=== PATIENT | male | born 1940 | race Caucasian/White ===

== ENCOUNTER 2018-07-24 20:48 | Emergency (ER) | payer MEDICARE, OTHER ==
[2018-07-24 21:31] LABS: INR-International Normal Ratio 2.9; PTT 40.8 SEC (22.9-36.1); Prothrombin Time 30.1 SEC (12.0-14.7)
--- NOTE | 2018-07-24 21:38 | RAD ---
EXAM: Right Rib series with chest x-ray HISTORY: Fall from tractor with chest and right rib pain COMPARISON: None FINDINGS: Single view of the chest shows a normal sized cardiomediastinal silhouette. The patient is status post sternotomy. There is no evidence of consolidation, mass, or pleural effusion. Multiple views of the right ribs shows no evidence of displaced rib fracture. No underlying pleural t hickening or pneumothorax are seen. IMPRESSION: 1. No evidence of displaced rib fracture. 2. No evidence of acute cardiopulmonary disease.
[2018-07-24 21:44] LABS: #Basophils 0.1 thou/uL (0.0-0.2); #Eosinphils 0.2 thou/uL (0.0-0.7); #Lymphocytes 1.1 thou/uL (1.20-3.40); #Monocytes 0.4 thou/uL (0.11-0.59); #Neutrophils 3.3 thou/uL (1.40-6.50); %Basophils 1.2 % (0.0-1.0); %Eosinophils 4.1 % (0.0-10.0); %Lymphocytes 21.3 % (21.0-51.0); %Monocytes 8.2 % (0.0-10.0); %Neutrophils 65.2 % (42.0-75.0); Hemoglobin 13.1 g/dL (14.0-18.0); Mean Corpuscular HGB CONC 32.8 g/dL (32.0-36.0); Mean Corpuscular Hemoglobin 28.9 pg (27.0-31.0); Mean Corpuscular Volume 88.2 fL (78.0-98.0); Mean Platelet Volume 10.3 fL (7.4-10.4); Platelet Count 208 thou/uL (130-400); RBC Distribution Width 12.2 % (11.5-14.5); Red Blood Cell (RBC) Count 4.54 mill/uL (4.70-6.10)
--- NOTE | 2018-07-24 21:44 | RAD ---
EXAM: 3 views of the right shoulder HISTORY: Shoulder pain after falling off a tractor COMPARISON: None FINDINGS: There is no evidence of acute fracture or dislocation. No degenerative changes are present. No soft tissue swelling is seen. The visualized thorax is unremarkable. IMPRESSION: No evidence of acute osseous abnormality.
--- NOTE | 2018-07-24 21:50 | RAD ---
EXAM: 3 views of the right ankle HISTORY: Ankle pain COMPARISON: None FINDINGS: 3 views of the right ankle shows no evidence of acute fracture or dislocation. No soft tiss ue swelling is seen. No degenerative changes are present. Vascular calcifications are seen. IMPRESSION: No evidence of acute osseous abnormality.
== END 2018-07-24 22:11 | disposition home or self-care (01) ==
LOC: NAV ERS 20:48
DX: S23.41XA Sprain of ribs, initial encounter (principal); M25.511 Pain in right shoulder; M25.571 Pain in right ankle and joints of right foot; V89.2XXA Person injured in unspecified motor-vehicle accident, traffic, initial encounter; E03.9 Hypothyroidism, unspecified; E11.9 Type 2 diabetes mellitus without complications; K21.9 Gastro-esophageal reflux disease without esophagitis; I10 Essential (primary) hypertension; Z79.899 Other long term (current) drug therapy; Z79.01 Long term (current) use of anticoagulants
CPT/HCPCS: 85025; 85610; 85730

== ENCOUNTER 2019-02-14 19:31 | Observation (INO) | payer OTHER ==
[2019-02-14 20:08] LABS: #Basophils 0.1 thou/uL (0.0-0.2); #Eosinphils 0.3 thou/uL (0.0-0.7); #Lymphocytes 1.2 thou/uL (1.20-3.40); #Monocytes 0.5 thou/uL (0.11-0.59); %Basophils 1.5 % (0.0-1.0); %Eosinophils 4.7 % (0.0-10.0); %Lymphocytes 19.4 % (21.0-51.0); %Monocytes 8.5 % (0.0-10.0); %Neutrophils 65.9 % (42.0-75.0); Hemoglobin 13.3 g/dL (14.0-18.0); Mean Corpuscular HGB CONC 32.5 g/dL (32.0-36.0); Mean Corpuscular Hemoglobin 29.4 pg (27.0-31.0); Mean Corpuscular Volume 90.4 fL (78.0-98.0); Mean Platelet Volume 9.9 fL (7.4-10.4); Platelet Count 235 thou/uL (130-400); RBC Distribution Width 12.1 % (11.5-14.5); Red Blood Cell (RBC) Count 4.52 mill/uL (4.70-6.10); White Blood Cell (WBC) Count 6.1 thou/uL (4.8-10.8)
[2019-02-14 20:18] LABS: INR-International Normal Ratio 3.4
[2019-02-14 20:25] LABS: ALT (SGPT) 22 U/L (8-55); AST (SGOT) 21 U/L (5-34); Albumin 4.7 g/dL (3.4-4.8); Alkaline Phosphatase 79 U/L (40-110); Anion Gap 15 mmol/L (10-20); BUN (Urea Nitrogen) 20 mg/dL (8.4-25.7); Bilirubin, Total 0.4 mg/dL (0.2-1.2); Calc. Creatinine Clearance 0 mL/min (70-130); Calcium 9.2 mg/dL (7.8-10.44); Carbon Dioxide 23 mmol/L (23-31); Chloride 106 mmol/L (98-107); Estimated GFR-MDRD 62; Globulin 2.4 g/dL (2.4-3.5); Glucose 108 mg/dL (83-110); Potassium 4.2 mmol/L (3.5-5.1); Protein, Total 7.1 g/dL (5.8-8.1); Sodium 140 mmol/L (136-145)
--- NOTE | 2019-02-14 20:25 | CT ---
CT OF BRAIN PERFORMED WITHOUT CONTRAST ENHANCEMENT: 02/14/19 HISTORY: Head injury status post fall. There is mild generalized ventricular and sulcal prominence. There is no signs of intracerebral hemor rhage or extra-axial fluid collection. The mastoid air cells are clear. There is bilateral ethmoid ai r cell mucosal change. IMPRESSION: No acute intracranial abnormalities. POS: [facility]
--- NOTE | 2019-02-14 20:53 | RAD ---
LEFT HAND THREE VIEWS: 02/14/19 HISTORY: Fall with hand pain. Postoperative changes with plate and screw placement of the fifth metacarpal are noted. There are art hritic changes of the hand and wrist. There is no evidence of fracture. IMPRESSION: No evidence of fracture. POS: [facility]
--- NOTE | 2019-02-14 21:04 | CT ---
CT OF FACIAL BONES PERFORMED WITHOUT CONTRAST ENHANCEMENT: 02/14/19 HISTORY: Fall hitting face. The nasal bone appears intact. The zygomatic arches and pterygoid processes also appear intact. Minimal mucosa change in the maxillary sinus. There is also mucosa disease within the bilateral ethmo id and left sphenoid air cells. There are no air fluid levels identified. There is no CT evidence of fracture of the maxilla or orbit. Condyles are normal position. There is no mandibular fracture identified. IMPRESSION: No CT evidence of fracture of the facial bones. POS: [facility]
--- NOTE | 2019-02-14 21:06 | CT ---
CT OF CERVICAL SPINE PERFORMED WITHOUT CONTRAST ENHANCEMENT: 02/14/19 HISTORY: Neck pain after stepping off a curb. The vertebral bodies are normal in height. There is mild disc narrowing at C4-5 more pronounced disc narrowing at the C5-6 and C6-7 levels. The facets are in normal alignment. There is no significant ca nal stenosis. Mild left sided foraminal narrowing is seen at C4-5 and right sided foraminal narrowing at C5-6. There is no CT evidence for fracture. IMPRESSION: No CT evidence of fracture of the cervical spine. POS: [facility]
[2019-02-14 22:15] LABS: PTT 45.9 SEC (22.9-36.1)
[2019-02-14 23:23] VITALS: BMI 30.4
[2019-02-15] MEDS ORDERED: Acetaminophen 325 MG TAB PO PRN (01:12)
[2019-02-15] MEDS ORDERED: Ondansetron ODT 4 MG TAB SL PRN (01:12)
[2019-02-15] MEDS ORDERED: Ondansetron PF 4 MG/2 ML Vial IVP PRN (01:12)
[2019-02-15] MEDS ORDERED: Acetaminophen 500 MG TAB PO PRN ×2 (06:21→06:22)
[2019-02-15] MEDS ORDERED: Levothyroxine Sodium 75 MCG TAB PO SCH (06:30)
[2019-02-15] MEDS ORDERED: glipiZIDE 5 MG TAB PO SCH (07:30)
[2019-02-15 07:36] LABS: INR-International Normal Ratio 3.1; Prothrombin Time 31.7 SEC (12.0-14.7)
[2019-02-15] MEDS ORDERED: Amlodipine 5 MG TAB PO SCH (09:00)
[2019-02-15] MEDS ORDERED: Multivitamin W/ Minerals 1 TAB PO SCH (09:00)
[2019-02-15] MEDS ORDERED: Lactinex Tablet PO SCH (09:00)
[2019-02-15] MEDS ORDERED: Metoprolol Tartrate 25 MG TAB PO SCH (09:00)
[2019-02-15] MEDS ORDERED: Lisinopril 10 MG TAB PO SCH ×2 (09:00)
[2019-02-15 16:55] VITALS: BP 151/76; TEMP 96.8
[2019-02-15] MEDS ORDERED: Warfarin Sodium 5 MG TAB PO SCH ×2 (17:00)
[2019-02-15] MEDS ORDERED: Terazosin HCl 1 MG CAP PO SCH (21:00)
[2019-02-16] MEDS ORDERED: Levothyroxine Sodium 75 MCG TAB PO SCH (06:00)
--- NOTE | 2019-02-16 14:48 | SS ---
DATE OF ADMISSION: 02/14/2019 DATE OF DISCHARGE: 02/15/2019 Date of placement in the observation grace, February 14, 2019. FINAL DIAGNOSES: 1. Head trauma. The patient on warfarin anticoagulation. 2. Transient blurred vision, headache, contusions of the face. 3. Diabetes type 2. 4. Gastroesophageal reflux. 5. Hypertension. 6. Hypothyroidism. HISTORY OF PRESENT ILLNESS: The patient is a 78-year-old white male with a history of hypertension, diabetes, and aortic valve replacement, who is on warfarin with an INR of 3.5, but who has fallen and suffered trauma to his forehead with transient blurred vision, severe contusions of the head with no loss of consciousness, was seen in the emergency room, found to have stable vital signs with blood pressure of 161/90, pulse 71, and respirations 17. Laboratory showed no evidence of facial fractures. No evidence of intracranial hemorrhage. Hemoglobin 13. White count 6100. PT/INR on admission of 3.4. Sodium 140, potassium 4.2, chloride 106, bicarb 23, BUN 20, creatinine and albumin 4.7. Accu-Cheks 162 to 168. Neurological exam was entirely normal on admission. He was monitored overnight with no change in his mental or physical status. His warfarin was held and decreased to 3.1. He was ambulating next day with no evidence of significant bleeding and therefore was felt to be stable to be discharged home to follow up with PCP on his prehospitalization medications of amlodipine 10 mg daily, glipizide 5 daily, levothyroxine 75 mcg daily, lisinopril 40 daily, metoprolol 12.5 twice daily, omeprazole 20 daily, terazosin 3 mg nightly, warfarin 5 mg daily with an extra 2.5 mg on Saturday and Saturday, and he will follow up with his PCP. Job ID: [id number]
[2019-02-16] MEDS ORDERED: Warfarin Sodium 5 MG TAB PO SCH (17:00)
[2019-02-16] MEDS ORDERED: Warfarin Sodium 2.5 MG TAB PO SCH (17:00)
== END 2019-02-15 18:50 | disposition home or self-care (01) ==
LOC: NAV ERS 19:31 → NAV ACUTE 23:02
PROVIDERS: ADMIT Internal Medicine; ATTEND Internal Medicine
DX: S00.83XA Contusion of other part of head, initial encounter (principal); I10 Essential (primary) hypertension; E11.9 Type 2 diabetes mellitus without complications; K21.9 Gastro-esophageal reflux disease without esophagitis; E03.9 Hypothyroidism, unspecified; Z79.01 Long term (current) use of anticoagulants; Z79.84 Long term (current) use of oral hypoglycemic drugs; Z79.899 Other long term (current) drug therapy; Z88.2 Allergy status to sulfonamides; Z95.2 Presence of prosthetic heart valve; W01.0XXA Fall on same level from slipping, tripping and stumbling without subsequent striking against object, initial encounter
CPT/HCPCS: 36416; 70450; 70486; 72125; 80053; 85025; 85610; 85730; 36415-59; G0378; L0120